=== PATIENT | male | born 1975 | race Caucasian/White ===

== ENCOUNTER → 2016-03-13 | Outpatient (CLI) | payer OTHER ==
--- NOTE | 2016-03-13 16:15 | REP ---
Clinical: Acute bronchitis. Technique: PA and lateral. Comparison: 03/05/2012. Findings: Coarsened interstitial markings may reflect bronchitis. No focal consolidation, effusion, or pneumothorax. Mediastinum and cardiac silhouette normal. Skeletal structures intact. Impression: Diffuse coarsened markings may reflect bronchitis. No focal consolidation. Signed by Max Dang MD 03/13/2016 04:07 P
== END ==
LOC: M ADAMS 15:00
PROVIDERS: ATTEND Physician Assistant Medical
DX: J20.9 Acute bronchitis, unspecified (principal)

== ENCOUNTER 2016-12-03 09:52 | Emergency (ER) | payer OTHER ==
[~2016-12-03] VITALS: Ht 188 cm; Wt 115.9 kg
[2016-12-03 09:52] VITALS: BP 187/88
--- NOTE | 2016-12-03 11:16 | REP ---
Left knee series: Five views. History: Crepitus after trauma. Findings: Five views of the left knee show normal bones, joints, and soft tissues. There is no evidence of fracture or subluxation. No soft tissue gas is seen. A normal fabella is noted. Impression: Negative left knee series. Signed by Mike Mejia MD 12/03/2016 03:04 P
== END 2016-12-03 11:39 | disposition home or self-care (01) ==
LOC: M ED 09:52
DX: S83.402A Sprain of unspecified collateral ligament of left knee, initial encounter (principal); Y92.219 Unspecified school as the place of occurrence of the external cause; Y93.19 Activity, other involving water and watercraft; Y99.8 Other external cause status

== ENCOUNTER → 2017-06-14 | Outpatient (CLI) | payer OTHER ==
[2017-06-14 12:57] LABS: BASO % 0.5 % (0.0-1.0); EOS # 0.3 10^3/uL (0.0-0.50); EOS % 3.8 % (0.0-3.0); HEMATOCRIT 45.8 % (42.0-52.0); HEMOGLOBIN 15.9 g/dl (13.5-17.5); IMMATURE GRANULOCYTE % 0.2 % (0-3.0); LYMPH # 2.2 10^3/uL (1.5-4.5); LYMPH % 26.7 % (24.0-44.0); MEAN CORPUSCULAR HEMOGLOBIN 31.1 pg (27.0-33.0); MEAN CORPUSCULAR HGB CONC 34.7 g/dl (32.0-36.5); MEAN CORPUSCULAR VOLUME 89.5 fl (80.0-96.0); MONO # 0.8 10^3/uL (0.0-0.8); MONO % 9.9 % (0.0-5.0); NEUTROPHILS # 4.8 10^3/uL (1.8-7.7); NEUTROPHILS % 58.9 % (36.0-66.0); PLATELET COUNT, AUTOMATED 260 10^3/uL (150-450); RED BLOOD COUNT 5.12 10^6/uL (4.30-6.10); RED CELL DISTRIBUTION WIDTH 12.2 % (11.5-14.5); WHITE BLOOD COUNT 8.2 10^3/uL (4.0-10.0)
== END ==
LOC: M ADAMS 08:26
DX: J20.9 Acute bronchitis, unspecified (principal)

== ENCOUNTER → 2018-06-26 | Outpatient (REF) | payer OTHER ==
[2018-06-26 13:27] LABS: BASO % 0.4 % (0.0-1.0); EOS # 0.2 10^3/uL (0.0-0.50); EOS % 1.9 % (0.0-3.0); HEMATOCRIT 46.8 % (42.0-52.0); HEMOGLOBIN 16.2 g/dl (13.5-17.5); LYMPH # 1.4 10^3/uL (1.5-4.5); LYMPH % 13.8 % (24.0-44.0); MEAN CORPUSCULAR HEMOGLOBIN 31.2 pg (27.0-33.0); MEAN CORPUSCULAR HGB CONC 34.6 g/dl (32.0-36.5); MONO # 0.9 10^3/uL (0.0-0.8); MONO % 9.1 % (0.0-5.0); NEUTROPHILS # 7.6 10^3/uL (1.8-7.7); NEUTROPHILS % 74.4 % (36.0-66.0); PLATELET COUNT, AUTOMATED 227 10^3/uL (150-450); WHITE BLOOD COUNT 10.2 10^3/uL (4.0-10.0)
== END ==
LOC: M LABDRWAD 12:55
PROVIDERS: ATTEND Physician Assistant
DX: M79.671 Pain in right foot (principal)

== ENCOUNTER → 2018-06-26 | Outpatient (CLI) | payer OTHER ==
--- NOTE | 2018-06-26 10:14 | REP ---
Right foot series: Four views. History: Pain in the right foot. Findings: Four views right foot show overall normal mineralization. Bones, joints, and soft tissues are unremarkable. Impression: Negative right foot radiographs. Electronically Signed by Mike Mejia MD 06/26/2018 10:06 A
== END ==
LOC: M ADAMS 08:30
PROVIDERS: ATTEND Physician Assistant
DX: M25.571 Pain in right ankle and joints of right foot (principal)

== ENCOUNTER → 2021-01-02 | Outpatient (REF) | payer OTHER ==
[2021-01-02 13:03] LABS: BASO # 0.1 10^3/uL (0.0-0.2); BASO % 0.7 % (0.0-1.0); EOS # 0.2 10^3/uL (0.0-0.5); EOS % 2.2 % (0.0-3.0); HEMATOCRIT 46.1 % (42.0-52.0); HEMOGLOBIN 15.7 g/dl (13.5-17.5); LYMPH % 26.3 % (24.0-44.0); MEAN CORPUSCULAR HEMOGLOBIN 30.7 pg (27.0-33.0); MEAN CORPUSCULAR HGB CONC 34.1 g/dl (32.0-36.5); MEAN CORPUSCULAR VOLUME 90.2 fl (80.0-96.0); MONO # 0.8 10^3/uL (0.0-0.8); MONO % 10.8 % (2.0-8.0); NEUTROPHILS # 4.4 10^3/uL (1.5-8.5); NEUTROPHILS % 59.3 % (36.0-66.0); PLATELET COUNT, AUTOMATED 253 10^3/uL (150-450); RED BLOOD COUNT 5.11 10^6/uL (4.30-6.10); WHITE BLOOD COUNT 7.4 10^3/uL (4.0-10.0)
[2021-01-02 13:34] LABS: C REACTIVE PROTEIN QUANTITATIV < 0.30 MG/DL (0.00-0.30); RHEUMATOID FACTOR QUANT < 10.0 IU/ML (<15.0); URIC ACID 6.7 MG/DL (3.5-7.2)
[2021-01-02 14:14] LABS: ERYTHROCYTE SEDIMENTATION RATE 7 mm/hr (0-15)
[2021-01-02 15:54] LABS: CRYSTALS, BODY FLUID NONE SEEN (NONE SEEN); SOURCE, BODY FLUID CRYSTALS RT KNEE
[2021-01-02 17:16] LABS: SOURCE, BODY FLUID GLUCOSE RT KNEE
[2021-01-02 17:20] LABS: SOURCE, BODY FLUID RT KNEE; SYNOVIAL FLUID COLOR YELLOW (COLORLESS)
[2021-01-03 10:13] LABS: BODY FLUID RHEUMATOID SCREEN NEGATIVE (NEGATIVE)
[2021-01-03 10:14] LABS: MUCIN CLOT TEST 3+ (4+)
[2021-01-03 18:11] LABS: ANTINUCLEAR ANTIBODIES DIRECT Negative (Negative); Lyme Disease IgG/IgM Antibodie <0.91 ISR (0.00-0.90); Lyme Disease IgM Ab Quantitati <0.80 index (0.00-0.79)
== END ==
LOC: M LABDRWAD 12:16
PROVIDERS: ATTEND Physician Assistant Surgical
DX: M17.11 Unilateral primary osteoarthritis, right knee (principal)

== ENCOUNTER → 2022-11-13 | Outpatient (CLI) | payer OTHER | LOC: M PLAIMG 07:56 | PROVIDERS: ATTEND Nurse Practitioner Adult Health | DX: R05.1 Acute cough (principal) ==

== ENCOUNTER 2023-03-20 08:56 | Day surgery (SDC) | payer OTHER ==
[~2023-03-20] VITALS: Ht 188 cm; Wt 117.7 kg
[~2023-03-20 08:56] MED LIST: LISI20TA33 PO; NS 1,000 ML IV ONE; PANT40TA29 PO; SUCR1TAB56 PO
[2023-03-20] MEDS ORDERED: LIDOCAINE 2% 100MG/5ML SDV (FOR ANES.) As Ordered ONE (11:02)
[2023-03-20] MEDS ORDERED: propofoL 200 MG/20 ML VIAL As Ordered ONE (11:02)
[2023-03-20 11:32] VITALS: TEMP 97.6
[2023-03-20 11:55] VITALS: BP 140/74; O2SAT 98
== END 2023-03-20 12:09 | disposition home or self-care (01) ==
LOC: M OPP 08:56
PROVIDERS: ATTEND Surgery
DX: Z12.11 Encounter for screening for malignant neoplasm of colon (principal); D12.5 Benign neoplasm of sigmoid colon; K64.0 First degree hemorrhoids; K29.70 Gastritis, unspecified, without bleeding; K29.80 Duodenitis without bleeding; K31.89 Other diseases of stomach and duodenum; Z79.1 Long term (current) use of non-steroidal anti-inflammatories (NSAID); Z79.51 Long term (current) use of inhaled steroids; Z79.899 Other long term (current) drug therapy

== ENCOUNTER → 2023-06-24 | Outpatient (REF) | payer OTHER ==
[~2023-06-24] MED LIST changes: -NS 1,000 ML IV ONE
== END ==
LOC: M LABDRWAD 12:32
PROVIDERS: ATTEND Physician Assistant
DX: K63.5 Polyp of colon (principal); K29.70 Gastritis, unspecified, without bleeding; K29.80 Duodenitis without bleeding

== ENCOUNTER → 2023-09-24 | Outpatient (REF) | payer OTHER | LOC: M SFHCPLAZ 17:15 | PROVIDERS: ATTEND Physician Assistant Medical | DX: J01.80 Other acute sinusitis (principal) ==

== ENCOUNTER → 2024-09-02 | Outpatient (REF) | payer OTHER ==
[~2024-09-02] MED LIST changes: +AMOX875T2 PO
[2024-09-02 14:36] LABS: PLATELET COUNT, AUTOMATED 219 10^3/uL (150-450)
[2024-09-02 14:43] LABS: ALT/SGPT 41 U/L (7.0-40); AST/SGOT 23 U/L (<34); CALCIUM LEVEL 9.2 MG/DL (8.5-10.1); CARBON DIOXIDE LEVEL 28 MMOL/L (20-31); CHLORIDE LEVEL 103 MMOL/L (98-107); CHOLESTEROL LEVEL 175 MG/DL (<200); CHOLESTEROL RISK RATIO 6.52 (<5); CREATININE FOR GFR 0.88 MG/DL (0.70-1.30); GLOMERULAR FILTRATION RATE > 90.0 (>56); NON-HDL-C 148.2 MG/DL; POTASSIUM SERUM 4.7 MMOL/L (3.5-5.1); SODIUM LEVEL 140 MMOL/L (136-145); TRIGLYCERIDES LEVEL 537 MG/DL (<150)
== END ==
LOC: M SFHCADAM 07:45
PROVIDERS: ATTEND Nurse Practitioner Adult Health
DX: I10 Essential (primary) hypertension (principal); Z13.220 Encounter for screening for lipoid disorders; M10.071 Idiopathic gout, right ankle and foot

== ENCOUNTER → 2024-12-02 | Outpatient (CLI) | payer OTHER | LOC: M PLAIMG 15:57 | PROVIDERS: ATTEND Nurse Practitioner Adult Health | DX: J20.9 Acute bronchitis, unspecified (principal); R09.89 Other specified symptoms and signs involving the circulatory and respiratory systems ==